=== PATIENT | male | born 1995 | race Two or more races ===

== ENCOUNTER 2024-03-06 00:31 | Emergency (ER) | payer OTHER ==
[~2024-03-06] VITALS: Ht 175.3 cm; Wt 87.1 kg
[2024-03-06 00:47] VITALS: BP 139/98; PULSE 81; RESP 16; O2SAT 95
--- NOTE | 2024-03-06 00:50 | ED.PDOC ---
History of Present Illness HPI Comments 28-year-old male presents with a chief complaint of cough, chills, and fever x onset 11 days. Patient states that he initially started feeling sick around 02/24/2024. Patient mentions that he has been having a persistent cough, chills, and intermittent fever. Patient was afebrile in triage at 97.9F. Patient mentions that he has been taking OTC medications to help with his symptoms, but denies any relief. Patient reports he was recently exposed to tuberculosis at his job but had negative TB test and negative chest x-ray. No other symptoms or modifying factors present at this time. Time Seen by MD: 00:41 Reviewed Notes: Medications, Allergies Allergies: Coded Allergies: NO KNOWN ALLERGIES (Unverified , 03/06/24) Home Meds Active Scripts Benzonatate (Benzonatate) 200 Mg Cap, 1 CAP PO TID for 5 Days, #30 CAP Prov:NEL RUFF MD 03/06/24 Azithromycin (ZITHROMAX TABLET) 250 Mg Tb, 250 MG PO DAILY for 4 Days, #6 TAB Take 2 tabs on day 1 then 1 tab daily each day after that for a total of 5 days. Prov:NEL RUFF MD 03/06/24 Albuterol Sulfate (VENTOLIN MDI) 90 Mcg Ih, 90 MCG IN Q6HPRN PRN for 5 Days, #1 INH Prov:NEL RUFF MD 03/06/24 Information Source: Patient Mode of Arrival: Ambulatory Severity: Moderate Timing: Days Duration: Since onset Prehospital treatment: None Vital Signs Vital Signs Date Time Temp Pulse Resp B/P (MAP) Pulse Ox O2 Delivery O2 Flow Rate FiO2 03/06/24 00:47 97.9 81 16 139/98 (112) 95 Physical Exam General: Awake, alert and oriented. No acute distress. Skin: Skin in warm, dry and intact. Appropriate color for ethnicity. Nailbeds pink with no cyanosis. HEENT: The head is normocephalic and atraumatic. Conjunctivae are clear without exudates or hemorrhage. Sclera is non-icteric. EOM are intact. No signs of nystagmus. Eyelids are normal in appearance without swelling or lesions. Oral mucosa is pink and moist Neck: The neck is supple with normal range of motion. No JVD. Cardiac: Heart rate and rhythm are normal. No murmurs, gallops, or rubs are auscultated. Respiratory: No signs of respiratory distress. Bilateral wheezes auscultated. Dry cough noted. Abdominal: Abdomen is soft, non-tender without distention. Bowel sounds are present and normoactive in all four quadrants. Extremities: Upper and lower extremities are atraumatic in appearance without deformity or edema. Neurological: The patient is awake, alert and oriented to person, place, and time with normal speech. Speech is clear. There is no facial asymmetry. Psychiatric: Appropriate mood and affect. Good judgement and insight. No visual or auditory hallucinations. Review of Systems: REVIEW OF SYSTEMS: Positive fever, no chills, or fatigue HEENT: No sore throat, no earache, positive congestion, no neck pain. Cardiac: No chest pain. No palpitations. Lungs: Positive shortness of breath, positive cough. GI: No nausea, no vomiting, no diarrhea, no constipation, no abdominal pain : No dysuria, frequency, or urgency. No hematuria. Musculoskeletal: No joint pain , no joint swelling, no extremity edema. Positive body aches Skin: No rash, no itching. Neuro: No headache, no dizziness, no weakness Past Medical History PAST MEDICAL HISTORY: Denies Surgical History (Other): DEVIATED SEPTUM Family History Family History: Reviewed,noncontributory to illness Social History Smoker: Non-Smoker Alcohol: Denies ETOH Use Drugs: Denies Drug Use Lives In: Home Was a procedure done? Was a procedure done?: No Differential Dx Considerations may include: Bronchitis, CHF, pneumonia, viral illness, GERD, other X-Ray, Labs, Meds, VS Vital Signs Date Time Temp Pulse Resp B/P (MAP) Pulse Ox O2 Delivery O2 Flow Rate FiO2 03/06/24 00:47 97.9 81 16 139/98 (112) 95 Time of 1ST Reevaluation: 01:11 Reevaluation 1ST: Unchanged Patient Education/Counseling: Diagnosis, Treatment, Prognosis Family Education/Counseling: Diagnosis, Treatment, Prognosis Departure 1 Departure Time of Disposition: 00:56 Impression: Primary Impression: Cough Additional Impression: Bronchitis Disposition: 01 HOME / SELF CARE / HOMELESS Condition: Stable Additional Instructions: ED DISCHARGE INSTRUCTIONS Instructions: Please read all instructions provided in this packet carefully. Although you have been discharged from the Emergency Department, this does not mean that you have a "clean bill of health". []No definitive diagnosis for your symptoms has been made today. It is possible that you are in the process of developing a serious illness. This is why you must return to the ED without fail if any new or worsening symptoms (especially if your symptoms include chest pain, trouble breathing, abdominal pain, fever, headache, confusion, trouble seeing, or trouble walking) It is also very important that you see a primary care doctor within the next 3-5 days to follow up. If you are unable to get an appointment, return to the ED for re-evaluation. SHORTNESS OF BREATH EDUCATION Shortness of breath has many causes. Sometimes conditions such as anxiety can lead to shortness of breath. Some people get mild shortness of breath when they exercise. Trouble breathing also can be a symptom of a serious problem, such as asthma, lung disease, emphysema, heart problems, and pneumonia. If your shortness of breath continues, you may need tests and treatment. Watch for any changes in your breathing and other symptoms. Follow-up care is a thomas part of your treatment and safety. Be sure to make and go to all appointments, and call your doctor if you are having problems. It's also a good idea to know your test results and keep a list of the medicines you take. How can you care for yourself at home? Do not smoke or allow others to smoke around you. If you need help quitting, talk to your doctor about stop-smoking programs and medicines. These can increase your chances of quitting for good. Get plenty of rest and sleep. Take your medicines exactly as prescribed. Call your doctor if you think you are having a problem with your medicine. Find healthy ways to deal with stress. Exercise daily. Get plenty of sleep. Eat regularly and well. When should you call for help? Call 911 anytime you think you may need emergency care. For example, call if: You have severe shortness of breath. You have symptoms of a heart attack. These may include: Chest pain or pressure, or a strange feeling in the chest. Sweating. Shortness of breath. Nausea or vomiting. Pain, pressure, or a strange feeling in the back, neck, jaw, or upper belly or in one or both shoulders or arms. Lightheadedness or sudden weakness. A fast or irregular heartbeat. After you call 911, the substation operator may tell you to chew 1 adult-strength or 2 to 4 low-dose aspirin. Wait for an ambulance. Do not try to drive yourself. Call your doctor now or seek immediate medical care if: Your shortness of breath gets worse or you start to wheeze. Wheezing is a high- pitched sound when you breathe. You wake up at night out of breath or have to prop your head up on several pillows to breathe. You are short of breath after only light activity or while at rest. Watch closely for changes in your health, and be sure to contact your doctor if: You do not get better over the next 1 to 2 days. Credits for Shortness of Breath: Care Instructions Current as of: November 02, 2023 Author: [employer] Staff e-Prescriptions Benzonatate (Benzonatate) 200 Mg Cap 1 CAP PO TID for 5 Days, #30 CAP Prov: NEL RUFF MD 03/06/24 Azithromycin (ZITHROMAX TABLET) 250 Mg Tb 250 MG PO DAILY for 4 Days, #6 TAB Take 2 tabs on day 1 then 1 tab daily each day after that for a total of 5 days. Prov: NEL RUFF MD 03/06/24 Albuterol Sulfate (VENTOLIN MDI) 90 Mcg Ih 90 MCG IN Q6HPRN PRN for 5 Days, #1 INH Prov: NEL RUFF MD 03/06/24 Comments 38-year-old male with symptoms suggestive of bronchitis . Consider imaging however deferred at this time. We will treat empirically with azithromycin. Patient well-appearing, nontoxic. Advised prompt follow-up with PCP, return to the ED with any new, worsening or concerning symptoms. Critical Care Note Critical Care Time?: No Stability Stability form required: No I personally scribed for NEL RUFF MD ([email or web address]) on 03/06/24 at 00:50. Electronically submitted by Henok Jackson ([email or web address]). NEL RUFF MD Mar 06, 2024 00:50
[2024-03-06] MEDS ORDERED: ALBUAER3 IN (00:59)
[2024-03-06] MEDS ORDERED: BENZ200C64 PO (00:59)
[2024-03-06] MEDS ORDERED: AZIT-185 PO (00:59)
== END 2024-03-06 02:26 | disposition home or self-care (01) ==
LOC: ER 00:31
DX: J40 Bronchitis, not specified as acute or chronic (principal); Z79.899 Other long term (current) drug therapy